=== PATIENT | male | born 1995 | race Hispanic/Latino ===

== ENCOUNTER 2019-03-07 11:00 | Emergency (ER) | payer SELFPAY ==
[~2019-03-07] VITALS: Ht 172.7 cm; Wt 79.4 kg
--- NOTE | 2019-03-07 13:28 | NUR ---
HERPES SPECIMEN AND URINE SENT FOR GC/CHAL TESTING [facility]
== END 2019-03-07 13:40 | disposition home or self-care (01) ==
LOC: FSED 11:00
DX: N48.1 Balanitis (principal)
CPT/HCPCS: 81003; 87252; 87800; 99283